=== PATIENT | female | born 1995 | race Caucasian/White ===

== ENCOUNTER 2017-07-07 14:50 | Outpatient (CLI) | payer OTHER ==
[2017-07-07 16:06] LABS: BHCG - Serum Negative (NEGATIVE); Pregs Control Background? CLEAR/WHITE (CLR/WHITE); Pregs Control Bar Appear? YES (CONTROL BAR)
[2017-07-07 16:07] LABS: #Basophils 0.1 thou/uL (0.0-0.2); #Eosinphils 0.3 thou/uL (0.0-0.7); #Lymphocytes 2.8 thou/uL (1.20-3.40); #Monocytes 0.8 thou/uL (0.11-0.59); #Neutrophils 5.4 thou/uL (1.40-6.50); %Basophils 1.2 % (0.0-1.0); %Eosinophils 3.1 % (0.0-10.0); %Lymphocytes 29.7 % (28.0-48.0); %Monocytes 8.2 % (0.0-4.0); %Neutrophils 57.9 % (31.0-61.0); Hemoglobin 13.3 g/dL (12.0-16.0); Mean Corpuscular HGB CONC 32.4 g/dL (32.0-36.0); Mean Corpuscular Hemoglobin 30.1 pg (25.0-35.0); Mean Corpuscular Volume 92.9 fl (77.0-87.0); Mean Platelet Volume 7.3 fL (7.4-10.4); Platelet Count 242 thou/uL (130-400); RBC Distribution Width 11.7 % (11.5-14.5); Red Blood Cell (RBC) Count 4.42 mill/uL (4.00-5.20); White Blood Cell (WBC) Count 9.4 thou/uL (4.8-10.8)
== END 2017-07-07 14:51 | disposition home or self-care (01) ==
LOC: LABBT 14:50
PROVIDERS: ATTEND Surgery
DX: Z01.812 Encounter for preprocedural laboratory examination (principal); N63.20 Unspecified lump in the left breast, unspecified quadrant
CPT/HCPCS: 84703; 85025

== ENCOUNTER 2017-07-11 06:01 | Day surgery (SDC) | payer OTHER ==
[2017-07-07 15:12] VITALS: BMI 25.4
[2017-07-11] MEDS ORDERED: Bupivacaine/Epinephrine 0.25% 30 ML VIAL ONE (06:39)
[2017-07-11] MEDS ORDERED: Fentanyl 100 MCG/2 ML VIAL ONE (07:04)
[2017-07-11] MEDS ORDERED: Propofol 500 MG/50 ML VIAL ONE (07:09)
[2017-07-11] MEDS ORDERED: CEFAZOLIN/Water 2 GM/20 ML SYRINGE ONE (07:40)
--- NOTE | 2017-07-11 09:11 | OP ---
PREOPERATIVE DIAGNOSIS: Left breast mass. SURGEON: Jeramie Frey M.D. PROCEDURE PERFORMED: Excisional biopsy/lumpectomy. INDICATIONS: This is a 21-year-old female with a firm upper inner left breast mass. She underwent a core biopsy by Radiology that came back fibroadenoma. It was getting larger. She wanted it removed . FINDINGS: A 2.5 cm rubbery mass consistent with a fibroadenoma. DESCRIPTION OF PROCEDURE: After informed consent was obtained, the patient was taken to the operatin g room and given total intravenous anesthesia, placed in supine position. Her left breast was preppe d and draped in usual fashion. Local anesthesia infiltrated subcutaneously and deep. A curvilinear incision was performed. I moved it more lateral away from this inner quadrant for cosmetic reasons. Did a curvilinear incision and was able to advance the mass subcutaneously to the area of the incisi on. A silk suture used to secure it. It was excised sharply. It was marked with a black suture ant erior, blue suture superior, white suture lateral and sent to pathology for further analysis. Hemost asis was achieved with electrocautery. Subcutaneous reapproximated with interrupted 3-0 Vicryl. Ski n closed with a running subcuticular 4-0 Rapide. Steri-Strips applied. Sterile bandage applied. Th e patient tolerated the procedure well and was transferred to recovery in good condition. Sponge and needle count verified correct x2.
[2017-07-11] MEDS ORDERED: PROPOFOL 200 MG/20 ML VIAL ONE (17:13)
[2017-07-11] MEDS ORDERED: Lidocaine 1% PF 5 ML VIAL ONE (17:13)
== END 2017-07-11 09:55 | disposition home or self-care (01) ==
LOC: SDC 06:01
PROVIDERS: ATTEND Surgery
PROC: 0HBU0ZX Excision of Left Breast, Open Approach, Diagnostic (ICD-10-PCS; principal; 2017-07-11)
DX: D24.2 Benign neoplasm of left breast (principal)
CPT/HCPCS: 88305; J2001; J2704; J3010